=== PATIENT | male | born 1935 | race Caucasian/White ===

== ENCOUNTER 2021-01-25 05:53 | Day surgery (SDC) | payer MEDICARE, OTHER ==
[2021-01-18 12:48] LABS: BASOPHILS % (AUTO) 1.1 % (0-1); EOSINOPHILS # (AUTO) 0.1 X10'3 (0-0.9); EOSINOPHILS % (AUTO) 3.4 % (0-6); MEAN CORPUSCULAR HEMOGLOBIN 32.2 PG (27.0-31.0); MEAN CORPUSCULAR HGB CONC 34.1 g/dL (33.0-36.5); MEAN CORPUSCULAR VOLUME 94.5 FL (78-98); MEAN PLATELET VOLUME 7.5 FL (7.4-10.4); MONOCYTES # (AUTO) 0.4 X10'3 (0-0.9); MONOCYTES % (AUTO) 11.4 % (2-12); NEUTROPHILS # (AUTO) 2.3 X10'3 (1.8-7.7); NEUTROPHILS % (AUTO) 58.1 % (42-75); PRE OP HEMATOCRIT 43.9 % (42.0-52.0); PRE OP PLATELET COUNT 187 X10'3 (140-440); RED BLOOD COUNT 4.65 X10'6 (4.70-6.10); RED CELL DISTRIBUTION WIDTH 13.4 % (11.5-14.5)
[2021-01-18 12:59] LABS: PRE OP INR 1.2 INR
[2021-01-18 13:05] LABS: ALBUMIN 3.5 G/DL (3.4-5.0); ALKALINE PHOSPHATASE 75 IU/L (46-116); BLOOD UREA NITROGEN 18 MG/DL (7-18); BUN/CREATININE RATIO 18.6 (5.4-32.0); CALCIUM 8.1 MG/DL (8.5-10.1); CHLORIDE 108 MMOL/L (99-107); CREATININE 0.97 MG/DL (0.60-1.10); PRE OP ALT 21 U/L (30-65); PRE OP ANION GAP 9 (8-16); PRE OP AST 16 U/L (10-37); PRE OP BILIRUB, TOTAL 1.5 MG/DL (0.0-1.0); PRE OP GLUCOSE 97 MG/DL (70-104); PRE OP POTASSIUM 4.2 MMOL/L (3.4-5.1); PRE OP SODIUM 143 MMOL/L (135-145); TOTAL CARBON DIOXIDE 26.4 MMOL/L (24-32); TOTAL PROTEIN 7.1 G/DL (6.4-8.2); eGFR 74 ML/MIN
[2021-01-25] VITALS (18 sets, daily range): BP systolic 105–162; BP diastolic 53–99
[~2021-01-25] VITALS: Ht 185.4 cm; Wt 102.8 kg
[~2021-01-25 05:53] MED LIST: AMLO2.5T2 PO; DABI75CA3 PO; DOFE500C PO; PANT40TA54 PO; POTASSIUM; ZOLP10TA PO; acetaminophen 325mg tablet PO ONE; cefazolin/dext.iso 2gm/100ml IV ONE; celeCOXIB 100mg capsule PO ONE; famotidine 20mg tablet PO ONE; gabapentin 300mg capsule PO ONE; metoclopramide 5 mg/ml inj IV ONE; oxyCODONE SR 10mg (sust. release) tab -2 tabs (20mg) PO ONE; ringers solution, lacted 1,000 ML IV SCH; tranexamic acid 1gm/0.7% sal. 100 ML IV ONE; vancomycin 1,500 MG in NS 300ml IV soln IV ONE
[2021-01-25] MEDS ORDERED: propofol inj 20 ML IV ONE (08:35)
[2021-01-25] MEDS ORDERED: fentaNYL/PF 50MCG/1 ML 2ML syringe ONE ×2 (08:35→09:12)
[2021-01-25] MEDS ORDERED: LIDOcaine 2% (20mg/ml) 5ml vial ONE (08:35)
[2021-01-25] MEDS ORDERED: ROPIVAcaine 0.5% (5mg/ml) 30ml vial ONE ×2 (08:38→09:17)
[2021-01-25] MEDS ORDERED: sevoflurane 250ml liquid IH ONE (08:39)
[2021-01-25] MEDS ORDERED: epiNEPHrine 1 mg/ml inj ONE (09:17)
[2021-01-25] MEDS ORDERED: cloNIDine hcl/PF 100mcg/ml inj ONE (09:17)
[2021-01-25] MEDS ORDERED: vancomycin 1,000mg inj ONE (09:17)
[2021-01-25] MEDS ORDERED: ondansetron/PF 4mg/2ml inj IV PRN ×2 (09:35→12:30)
[2021-01-25] MEDS ORDERED: morphine 2 MG/ML inj. syringe IV PRN (09:35)
[2021-01-25] MEDS ORDERED: HYDROmorphone/PF 0.2 MG/ML SYRINGE IV PRN ×2 (09:35)
[2021-01-25] MEDS ORDERED: ringers solution, lacted 1,000 ML IV SCH (09:35)
[2021-01-25] MEDS ORDERED: ROPIVAcaine 0.2% (10 MG/5 ML) BOLUS INJECTION ADDCANAL PRN (09:35)
[2021-01-25] MEDS ORDERED: acetaminophen 1,000mg/100ml IV 100 ML IV ONE (09:40)
[2021-01-25] MEDS ORDERED: ondansetron/PF 4mg/2ml inj ONE (09:40)
[2021-01-25] MEDS ORDERED: ROPIVAcaine 0.2%/PF PUMP/bolus 545 ML ADDCANAL SCH (10:00)
--- NOTE | 2021-01-25 10:35 | NUR ---
ADMITTED TO PACU FROM OR ACCOMPANIED BY ANESTHESIA. INTIAL PHYSICAL ASSESSMENT DONE AND RECORDED. REPORT RECEIVED FROM ANESTHESIA.
--- NOTE | 2021-01-25 11:25 | NUR ---
PACU DISCHARGE CRITERIA MET, REPORT GIVEN TO FLOOR. DENIES PAIN OR DISCOMFORT. PT IS STABLE AND ADEQUATELY RECOVERED FROM ANESTHESIA. PT HAS STABLE AIRWAY PATENCY, RESPIRATORY FUNCTION TO INCLUDE RESPIRATORY RATE AND O2 SAT. HEART RATE, BLOOD PRESSURE STABLE AND HYDRATION ADEQUATE. MENTAL STATUS IS APPROPRIATE. PAIN AND NAUSEA CONTROLLED. REFER TO PACU SPREADSHEET FOR VITAL SIGNS.
[2021-01-25] MEDS ORDERED: acetaminophen 325mg tablet PO PRN (12:30)
[2021-01-25] MEDS ORDERED: aspirin 325mg tablet PO SCH (12:30)
[2021-01-25] MEDS ORDERED: magnesium hydroxide 30ml (MOM) UD suspension PO PRN (12:30)
[2021-01-25] MEDS ORDERED: HYDROmorphone inj. 0.5 MG/0.5 ML DISP.SYRIN IV PRN (12:30)
[2021-01-25] MEDS ORDERED: oxyCODONE/APAP 10/325mg tablet PO PRN ×2 (12:30)
[2021-01-25] MEDS ORDERED: bisacodyl 10mg suppository rectal RC PRN (12:30)
[2021-01-25] MEDS ORDERED: diphenhydrAMINE 25mg capsule PO PRN ×2 (12:30)
[2021-01-25] MEDS ORDERED: HYDROmorphone 1 mg/ml syringe IV PRN (12:30)
[2021-01-25] MEDS ORDERED: tranexamic acid 1gm/0.7% sal. 100 ML IV ONE (13:00)
[2021-01-25] MEDS: gabapentin 300mg capsule PO SCH ×2 (13:32→20:21)
[2021-01-25] MEDS: cefazolin/dext.iso 2gm/100ml 100 ML IV SCH (16:00)
[2021-01-25] MEDS: potassium cl 20mEq in 1/2 NS 1,000 ML IV SCH (16:01)
--- NOTE | 2021-01-25 18:23 | NUR ---
Problems reprioritized. Patient report given, questions answered & plan of care reviewed with ZAMZAM MOHAN.
[2021-01-25] MEDS ORDERED: VANCOMYCIN 1,500MG inj. 1,500 MG in normal saline 500ml IV soln 500 ML IV SCH (20:00)
[2021-01-25] MEDS: ascorbic acid 500mg tablet PO SCH (20:20)
[2021-01-25] MEDS: dabigatran 150mg capsule PO SCH (20:21)
[2021-01-25] MEDS ORDERED: zolpidem 5mg tablet PO SCH (21:00)
[2021-01-25] MEDS ORDERED: sennosides 8.6mg tablet PO SCH (21:00)
[2021-01-26] MEDS: DOFETILIDE 500 MCG CAP PO SCH ×2 (00:18→07:54)
[2021-01-26] MEDS: cefazolin/dext.iso 2gm/100ml 100 ML IV SCH (00:39)
[2021-01-26] MEDS: potassium cl 20mEq in 1/2 NS 1,000 ML IV SCH ×2 (04:30→04:59)
[2021-01-26 05:46] LABS: BASOPHILS % (AUTO) 0.4 % (0-1); EOSINOPHILS % (AUTO) 0.6 % (0-6); HEMOGLOBIN 13.4 g/dl (14.0-17.9); LYMPHOCYTES # (AUTO) 0.9 X10'3 (1.1-4.8); MEAN CORPUSCULAR HEMOGLOBIN 31.1 PG (27.0-31.0); MEAN CORPUSCULAR HGB CONC 32.7 g/dL (33.0-36.5); MEAN CORPUSCULAR VOLUME 95.1 FL (78-98); MEAN PLATELET VOLUME 7.3 FL (7.4-10.4); MONOCYTES # (AUTO) 0.5 X10'3 (0-0.9); MONOCYTES % (AUTO) 9.5 % (2-12); NEUTROPHILS # (AUTO) 4.2 X10'3 (1.8-7.7); NEUTROPHILS % (AUTO) 73.5 % (42-75); PLATELET COUNT 183 X10'3 (140-440); RED BLOOD COUNT 4.32 X10'6 (4.70-6.10); RED CELL DISTRIBUTION WIDTH 13.2 % (11.5-14.5); WHITE BLOOD COUNT 5.8 X10'3 (4.5-11.0)
[2021-01-26 05:47] LABS: ANION GAP 6 (8-16); CHLORIDE 108 MMOL/L (99-107); POTASSIUM 4.3 MMOL/L (3.5-5.1); SODIUM 140 MMOL/L (135-145); TOTAL CARBON DIOXIDE 26.3 MMOL/L (24-32)
[2021-01-26 06:00] VITALS: BP 138/80
--- NOTE | 2021-01-26 06:26 | NUR ---
Patient in room ORTHO 4023. I have received report from KIMBERLEE WYMAN and had the opportunity to ask questions and assume patient care.
[2021-01-26] MEDS: ascorbic acid 500mg tablet PO SCH (07:53)
[2021-01-26] MEDS: gabapentin 300mg capsule PO SCH (07:54)
[2021-01-26] MEDS: dabigatran 150mg capsule PO SCH (07:55)
[2021-01-26] MEDS ORDERED: pantoprazole 40mg Tablet.DR PO SCH (08:00)
[2021-01-26] MEDS ORDERED: multivitamins, therapeutics tablet PO SCH (08:00)
[2021-01-26] MEDS ORDERED: amLODIPine 2.5mg tablet PO SCH (08:00)
[2021-01-26 10:00] VITALS: BP 129/57
--- NOTE | 2021-01-26 12:27 | NUR ---
PT DISCHARGED AT 1224. IV REMOVED, TIP INTACT, NO COMPLICATIONS. BELONGINGS SENT WITH PATIENT. POST OP CARE PROVIDED WELL FOLLOW UP. ALL QUESTIONS/ CONCERNS ANSWERED. PT DISCHARGED IN STABLE CONDITION IN PRIVATE VEHICLE WITH FAMILY TO HOME.
--- NOTE | 2021-01-26 13:14 | NUR ---
Joint surgery consult: Pt admit s/p R hip surgery this admit. Pt seen by EDYTA written/verbal high protein ed w/ EDYTA contact information provided. Addendum: 01/26/21 at [address] Amended: Links added.
[2021-01-26] MEDS ORDERED: celeCOXIB 100mg capsule PO SCH (20:00)
== END 2021-01-26 12:24 | disposition home or self-care (01) ==
LOC: PAS 05:53 → ORTHO 4S 07:16 → PAS 01-26 12:24
PROVIDERS: ATTEND Orthopaedic Surgery
DX: M17.11 Unilateral primary osteoarthritis, right knee (principal); M21.161 Varus deformity, not elsewhere classified, right knee; G89.18 Other acute postprocedural pain; K21.9 Gastro-esophageal reflux disease without esophagitis; I48.91 Unspecified atrial fibrillation; I25.2 Old myocardial infarction; Z86.718 Personal history of other venous thrombosis and embolism; Z20.822 Contact with and (suspected) exposure to COVID-19; Z87.891 Personal history of nicotine dependence; Z98.890 Other specified postprocedural states; Z90.49 Acquired absence of other specified parts of digestive tract; Z95.1 Presence of aortocoronary bypass graft; Z79.899 Other long term (current) drug therapy; Z79.01 Long term (current) use of anticoagulants
CPT/HCPCS: 27447; 36415; 64448; 71046; 73560; 76937; 80051; 80053; 82948; 85025; 85610; 85730; 86885; 86900; 86901; 87081; 87635; 97110; 97116; 97162; 97530; C1713; C1776; C9803; J0131; J0171; J0735; J2001; J2405; J2704; J2765; J2795; J3010; J3370; J7040; Z7506; Z7508; Z7512; A4215; A4618; A6449; A7000; G0378; J3480; J7120

== ENCOUNTER 2022-09-29 17:19 | Emergency (ER) | payer MEDICARE, OTHER ==
[~2022-09-29] VITALS: Ht 185.4 cm; Wt 100.0 kg
[~2022-09-29 17:19] MED LIST changes: -acetaminophen 325mg tablet PO ONE; -cefazolin/dext.iso 2gm/100ml IV ONE; -celeCOXIB 100mg capsule PO ONE; -famotidine 20mg tablet PO ONE; -gabapentin 300mg capsule PO ONE; -metoclopramide 5 mg/ml inj IV ONE; -oxyCODONE SR 10mg (sust. release) tab -2 tabs (20mg) PO ONE; -ringers solution, lacted 1,000 ML IV SCH; -tranexamic acid 1gm/0.7% sal. 100 ML IV ONE; -vancomycin 1,500 MG in NS 300ml IV soln IV ONE
--- NOTE | 2022-09-29 17:33 | NUR ---
provider aware of pts condition\complaint - appropriate orders have been entered
[2022-09-29 17:54] LABS: BASOPHILS # (AUTO) 0.1 X10'3 (0-0.2); BASOPHILS % (AUTO) 1.2 % (0-1); EOSINOPHILS # (AUTO) 0.2 X10'3 (0-0.9); EOSINOPHILS % (AUTO) 5.2 % (0-6); HEMATOCRIT 42.4 % (42.0-52.0); HEMOGLOBIN 14.1 g/dl (14.0-17.9); LYMPHOCYTES # (AUTO) 0.9 X10'3 (1.1-4.8); LYMPHOCYTES % (AUTO) 19.7 % (21-51); MEAN CORPUSCULAR HEMOGLOBIN 31.3 PG (27.0-31.0); MEAN CORPUSCULAR HGB CONC 33.3 g/dL (33.0-36.5); MEAN CORPUSCULAR VOLUME 94.1 FL (78-98); MEAN PLATELET VOLUME 7.6 FL (7.4-10.4); MONOCYTES # (AUTO) 0.4 X10'3 (0-0.9); MONOCYTES % (AUTO) 9.8 % (2-12); NEUTROPHILS # (AUTO) 2.8 X10'3 (1.8-7.7); NEUTROPHILS % (AUTO) 64.1 % (42-75); PLATELET COUNT 193 X10'3 (140-440); RED CELL DISTRIBUTION WIDTH 13.7 % (11.5-14.5); WHITE BLOOD COUNT 4.4 X10'3 (4.5-11.0)
[2022-09-29 18:18] LABS: APTT 34 SECONDS (22-32)
[2022-09-29 18:19] LABS: ALANINE AMINOTRANSFERASE 19 U/L (12-78); ALBUMIN 3.2 G/DL (3.4-5.0); ALBUMIN/GLOBULIN RATIO 0.9 (1.1-1.5); ALKALINE PHOSPHATASE 91 IU/L (46-116); ANION GAP 8 (8-16); ASPARTATE AMINO TRANSFERASE 17 U/L (10-37); BILIRUBIN,TOTAL 0.9 MG/DL (0.1-1.0); BLOOD UREA NITROGEN 23 MG/DL (7-18); CALCIUM 8.1 MG/DL (8.5-10.1); CHLORIDE 106 MMOL/L (99-107); CREATININE 1.15 MG/DL (0.60-1.10); GLUCOSE 183 MG/DL (70-104); POTASSIUM 3.5 MMOL/L (3.5-5.1); SODIUM 139 MMOL/L (135-145); TOTAL CARBON DIOXIDE 24.8 MMOL/L (24-32); TOTAL PROTEIN 6.9 G/DL (6.4-8.2); eGFR 60 ML/MIN
[2022-09-29] MEDS ORDERED: mupirocin 2% ointment 22GM TP ONE (18:40)
[2022-09-29] MEDS ORDERED: LIDOcaine 1% 30ml preserv. free vial IJ ONE (18:40)
[2022-09-29 19:26] VITALS: BP 133/72
--- NOTE | 2022-09-29 19:33 | NUR ---
left elbow had large avulsion of first layer of skin that was cleansed and dressed.
== END 2022-09-29 19:48 | disposition home or self-care (01) ==
LOC: ER 17:20
DX: S01.81XA Laceration without foreign body of other part of head, initial encounter (principal); Z79.899 Other long term (current) drug therapy; W18.39XA Other fall on same level, initial encounter; Y93.89 Activity, other specified; Y92.89 Other specified places as the place of occurrence of the external cause; Y99.8 Other external cause status
CPT/HCPCS: 12001; 36415; 70450; 70486; 72125; 80053; 85025; 85610; 85730; 99284; A6222; A6223; A6258

== ENCOUNTER 2022-11-28 06:15 | Inpatient (IN) | payer MEDICARE, OTHER ==
[2022-11-23 16:54] LABS: EOSINOPHILS # (AUTO) 0.1 X10'3 (0-0.9); EOSINOPHILS % (AUTO) 3.3 % (0-6); LYMPHOCYTES % (AUTO) 23.1 % (21-51); MEAN CORPUSCULAR HEMOGLOBIN 31.5 PG (27.0-31.0); MEAN CORPUSCULAR HGB CONC 33.9 g/dL (33.0-36.5); MEAN PLATELET VOLUME 8.2 FL (7.4-10.4); MONOCYTES # (AUTO) 0.5 X10'3 (0-0.9); MONOCYTES % (AUTO) 11.7 % (2-12); NEUTROPHILS # (AUTO) 2.5 X10'3 (1.8-7.7); NEUTROPHILS % (AUTO) 60.9 % (42-75); PRE OP HEMATOCRIT 42.6 % (42.0-52.0); PRE OP HEMOGLOBIN 14.4 g/dL (14.0-17.9); PRE OP PLATELET COUNT 185 X10'3 (140-440); RED BLOOD COUNT 4.58 X10'6 (4.70-6.10); RED CELL DISTRIBUTION WIDTH 13.9 % (11.5-14.5)
[2022-11-23 17:10] LABS: ALBUMIN 3.4 G/DL (3.4-5.0); ALKALINE PHOSPHATASE 84 IU/L (46-116); BLOOD UREA NITROGEN 28 MG/DL (7-18); BUN/CREATININE RATIO 29.5 (10.0-20.0); CALCIUM 8.8 MG/DL (8.5-10.1); CHLORIDE 107 MMOL/L (99-107); CREATININE 0.95 MG/DL (0.60-1.10); PRE OP ALT 17 U/L (30-65); PRE OP ANION GAP 8 (8-16); PRE OP AST 19 U/L (10-37); PRE OP BILIRUB, TOTAL 1.1 MG/DL (0.0-1.0); PRE OP GLUCOSE 111 MG/DL (70-104); PRE OP POTASSIUM 3.5 MMOL/L (3.4-5.1); PRE OP SODIUM 139 MMOL/L (135-145); TOTAL CARBON DIOXIDE 24.4 MMOL/L (24-32); TOTAL PROTEIN 6.8 G/DL (6.4-8.2); eGFR 75 ML/MIN
[~2022-11-28] VITALS: Ht 185.4 cm; Wt 101.1 kg
[2022-11-28] VITALS (15 sets, daily range): BP systolic 116–157; BP diastolic 62–87
[~2022-11-28 06:15] MED LIST changes: -AMLO2.5T2 PO; +AMLO5TAB PO; +DABI150C PO; -DABI75CA3 PO; +LEVO100T9 PO; -POTASSIUM; +POTASSIUM PO; +acetaminophen 325mg tablet PO ONE; +cefazolin 2gm/D5W 100mL 100 ML IV ONE; +celeCOXIB 100mg capsule PO ONE; +famotidine 20mg tablet PO ONE; +gabapentin 300mg capsule PO ONE; +metoclopramide 5 mg/ml inj IV ONE; +oxyCODONE SR 10mg (sust. release) tab -2 tabs (20mg) PO ONE; +tranexamic acid inj. 1,000 MG in normal saline IV soln 100ML IV ONE; +vancomycin 1,500 MG in NS 300ml IV soln IV ONE
[2022-11-28] MEDS: ringers solution, lacted 1,000 ML IV SCH ×2 (07:13→12:46)
[2022-11-28] MEDS ORDERED: HYDROmorphone 1 mg/ml syringe IV PRN (07:20)
[2022-11-28] MEDS ORDERED: HYDROmorphone inj. 0.5 MG/0.5 ML DISP.SYRIN IV PRN (07:20)
[2022-11-28] MEDS ORDERED: acetaminophen 325mg tablet PO PRN (07:20)
[2022-11-28] MEDS ORDERED: bisacodyl 10mg suppository rectal RC PRN (07:20)
[2022-11-28] MEDS ORDERED: ondansetron/PF 4mg/2ml inj IV PRN ×2 (07:20→08:05)
[2022-11-28] MEDS ORDERED: naloxone 0.4 mg/ml inj IV PRN (07:20)
[2022-11-28] MEDS ORDERED: HYDROcodone/acetaminophen 10/325mg tab PO PRN ×2 (07:20)
[2022-11-28] MEDS ORDERED: diphenhydrAMINE 25mg capsule PO PRN ×2 (07:20)
[2022-11-28] MEDS ORDERED: magnesium hydroxide 30ml (MOM) UD suspension PO PRN (07:20)
[2022-11-28] MEDS ORDERED: morphine 2 MG/ML inj. syringe IV PRN (08:05)
[2022-11-28] MEDS ORDERED: labetalol 20mg/4ml (5mg/ml) syringe IV PRN (08:05)
[2022-11-28] MEDS ORDERED: hydrALAZINE 20mg/ml inj. IV PRN (08:05)
[2022-11-28] MEDS ORDERED: ROPIVAcaine 0.2%/PF PUMP/bolus 545 ML ADDCANAL SCH (08:05)
[2022-11-28] MEDS ORDERED: ROPIVAcaine 0.2% (10 MG/5 ML) BOLUS INJECTION ADDCANAL PRN (08:05)
[2022-11-28] MEDS ORDERED: ringers solution, lacted 1,000 ML IV SCH (08:05)
[2022-11-28] MEDS ORDERED: fentaNYL/PF 50MCG/1 ML 2ML syringe IV PRN ×2 (08:05)
[2022-11-28] MEDS ORDERED: morphine 4 MG/ML inj SYRINge IV PRN (08:05)
[2022-11-28] MEDS ORDERED: ROPIVAcaine 0.5% (5mg/ml) 30ml vial ONE ×3 (08:06→10:18)
[2022-11-28] MEDS ORDERED: epiNEPHrine 1 mg/ml inj ONE ×2 (08:06→09:20)
[2022-11-28] MEDS ORDERED: cloNIDine hcl/PF 100mcg/ml inj ONE ×2 (08:06→09:20)
--- NOTE | 2022-11-28 08:30 | NUR ---
CSM:PEDAL PULSES MARKED AND PRSENT. MUPIROCIN CREAM WAS NOT ORDERED FOR THIS PATIENT. PATIENT WATCHED VIDEO
[2022-11-28] MEDS ORDERED: vancomycin 1,000mg inj ONE (09:20)
[2022-11-28] MEDS ORDERED: ketorolac trometh. 30mg/ml inj. ONE (09:20)
[2022-11-28] MEDS ORDERED: fentaNYL/PF 50MCG/1 ML 2ML syringe ONE (09:48)
[2022-11-28] MEDS ORDERED: MIDAZolam 1 MG/ML 5ML VIAL ONE (09:49)
[2022-11-28] MEDS ORDERED: dexamethasone sod phosphate 4mg/ml inj. ONE (10:29)
--- NOTE | 2022-11-28 11:40 | NUR ---
Received from OR via BED, accompanied by Anesthesiologist and report given by Anesthesiologist. PATIENT WAKING UP, NO S/S OF PAIN, V/S WNL, SCD ON, 20G TO LUE, AIDAN drsg to LEFT KNEE CDI with ON Q BALL AT 4ML/HR, SCD COLD PACK POICO DRESSING CDI.
--- NOTE | 2022-11-28 11:45 | NUR ---
Received from OR via BED, accompanied by Anesthesiologist and report given by Anesthesiologist. PATIENT WAKING UP, NO S/S OF PAIN, V/S WNL, SCD ON, 20G TO AIDAN RODRIGUEZ drsg to RIGHT KNEE CDI with ON Q BALL AT 4ML/HR, SCD COLD PACK POICO DRESSING CDI. Addendum: 11/28/22 at 1146 by Dangelo Pendleton RN CORRECTION
--- NOTE | 2022-11-28 12:30 | NUR ---
PATIENT A&OX4, DENIES PAIN, V/S WNL, SCD ON, 20G TO LUE, AIDAN drsg to LEFT KNEE CDI with ON Q BALL AT 4ML/HR, SCD COLD PACK AIDAN DRESSING CDI. PATIENT TAKEN TO ROOM WITH ALL BELONGINGS AND HOOKED UP TO MONITORS IN ROOM AND GIVEN CALL LIGHT, REPORT GIVEN TO RN WHO HAS TAKEN OVER PATIENT CARE.
--- NOTE | 2022-11-28 12:50 | NUR ---
Patient in room . I have received report from Dillon WYMAN and had the opportunity to ask questions and assume patient care.
[2022-11-28] MEDS: potassium cl 20mEq in 1/2 NS 1,000 ML IV SCH ×2 (13:04→22:35)
[2022-11-28] MEDS ORDERED: tranexamic acid inj. 1,000 MG in normal saline 100ml IV soln 90 ML IV ONE (14:00)
[2022-11-28] MEDS ORDERED: VANCOMYCIN 1,500MG inj. 1,500 MG in normal saline 500ml IV soln 300 ML IV ONE (20:00)
[2022-11-28] MEDS: ascorbic acid 500mg tablet PO SCH (20:00)
[2022-11-28] MEDS: dabigatran 150mg capsule PO SCH (20:00)
[2022-11-28] MEDS: DOFETILIDE 500 MCG PO SCH (20:01)
[2022-11-28] MEDS: gabapentin 300mg capsule PO SCH (20:08)
[2022-11-28] MEDS ORDERED: amLODIPine 5mg tablet PO SCH (21:00)
[2022-11-28] MEDS ORDERED: pantoprazole 40mg Tablet.DR PO SCH (21:00)
[2022-11-28] MEDS ORDERED: zolpidem 5mg tablet PO SCH (21:00)
[2022-11-28] MEDS ORDERED: sennosides 8.6mg tablet PO SCH (21:00)
--- NOTE | 2022-11-29 00:12 | NUR ---
patient VSS . unable to void. Dr Fletcher tiwari contacted ok to straight cath. patient repositioned in bed then able to void 775mls, did not therefore straight cath. patient stood up beside bed. No c/o knee pain. ON Q in place. Report given to Sanna WYMAN
[2022-11-29 02:00] VITALS: BP 127/69
[2022-11-29] MEDS: potassium cl 20mEq in 1/2 NS 1,000 ML IV SCH ×2 (02:31→07:20)
[2022-11-29 06:00] VITALS: BP 132/85
--- NOTE | 2022-11-29 06:29 | NUR ---
Patient in room ORTHO 4007. I have received report from ZAMZAM Isidro and had the opportunity to ask questions and assume patient care.
[2022-11-29 07:15] LABS: BASOPHILS % (AUTO) 0.3 % (0-1); EOSINOPHILS % (AUTO) 0.3 % (0-6); HEMATOCRIT 37.3 % (42.0-52.0); HEMOGLOBIN 12.6 g/dl (14.0-17.9); LYMPHOCYTES % (AUTO) 12.8 % (21-51); MEAN CORPUSCULAR HEMOGLOBIN 31.3 PG (27.0-31.0); MEAN CORPUSCULAR HGB CONC 33.8 g/dL (33.0-36.5); MEAN CORPUSCULAR VOLUME 92.6 FL (78-98); MEAN PLATELET VOLUME 7.6 FL (7.4-10.4); MONOCYTES # (AUTO) 0.8 X10'3 (0-0.9); MONOCYTES % (AUTO) 9.9 % (2-12); NEUTROPHILS # (AUTO) 5.9 X10'3 (1.8-7.7); NEUTROPHILS % (AUTO) 76.7 % (42-75); PLATELET COUNT 158 X10'3 (140-440); RED BLOOD COUNT 4.03 X10'6 (4.70-6.10); RED CELL DISTRIBUTION WIDTH 13.6 % (11.5-14.5); WHITE BLOOD COUNT 7.7 X10'3 (4.5-11.0)
[2022-11-29] MEDS: ascorbic acid 500mg tablet PO SCH (07:43)
[2022-11-29] MEDS: dabigatran 150mg capsule PO SCH (07:43)
[2022-11-29] MEDS: gabapentin 300mg capsule PO SCH (07:43)
[2022-11-29] MEDS: DOFETILIDE 500 MCG PO SCH (07:44)
[2022-11-29 07:54] LABS: ANION GAP 10 (8-16); CHLORIDE 107 MMOL/L (99-107); SODIUM 141 MMOL/L (135-145); TOTAL CARBON DIOXIDE 24.5 MMOL/L (24-32)
[2022-11-29] MEDS ORDERED: levoTHYROXINE 100mcg tablet PO SCH (08:00)
[2022-11-29] MEDS ORDERED: multivitamins, therapeutics tablet PO SCH (08:00)
[2022-11-29 10:00] VITALS: BP 117/65
--- NOTE | 2022-11-29 10:52 | NUR ---
Joint surgery consult: Pt s/p L knee surgery this admit per EMR. Pt seen by EDYTA for written/verbal high protein diet ed w/ RD contact information provided. EDYTA encouraged pt to contact dietitian's office if further nutrition questions/concerns. Addendum: 11/29/22 at [address] Amended: Links added.
--- NOTE | 2022-11-29 12:00 | NUR ---
I have reviewed and agree with interventions, assessments, and documentation by Garett Alfaro LVN.
--- NOTE | 2022-11-29 14:30 | NUR ---
Pt stable for discharge. Pt signed all d/c paperwork. IV removed prior to d/c. Pt left with all belongings. Pt discharged at 1425. Pt was assisted out in a wheelchair by one staff member. Family member was waiting in private vehicle and took patient home.
[2022-11-29] MEDS ORDERED: celeCOXIB 100mg capsule PO SCH (20:00)
== END 2022-11-29 14:14 | disposition home or self-care (01) | DRG 470 ==
LOC: PAS 06:15 → ORTHO 4S 07:34 → PAS 15:00
PROVIDERS: ADMIT Orthopaedic Surgery; ATTEND Orthopaedic Surgery
PROC: 3E0T3BZ Introduction of Anesthetic Agent into Peripheral Nerves and Plexi, Percutaneous Approach (ICD-10-PCS; 2022-11-28)
PROC: 3E0T33Z Introduction of Anti-inflammatory into Peripheral Nerves and Plexi, Percutaneous Approach (ICD-10-PCS; 2022-11-28)
PROC: 0SRD0J9 Replacement of Left Knee Joint with Synthetic Substitute, Cemented, Open Approach (ICD-10-PCS; principal; 2022-11-28 09:44)
DX: M17.12 Unilateral primary osteoarthritis, left knee (principal); Z71.6 Tobacco abuse counseling; Z79.899 Other long term (current) drug therapy
CPT/HCPCS: 36415; 73560; 80051; 80053; 82948; 85025; 86885; 86900; 86901; 87081; 97110; 97116; 97161; 97530; A4215; A4615; A7000; C1713; C1776; G0378; J0171; J0690; J0735; J1100; J1885; J2250; J2765; J2795; J3010; J3370; J3480; J3490; J7040; J7060; J7120